=== PATIENT | female | born 1980 | race Caucasian/White ===

== ENCOUNTER 2021-08-13 18:54 | Emergency (ER) | payer OTHER ==
[~2021-08-13] VITALS: Ht 165.1 cm; Wt 65.8 kg
[2021-08-13] MEDS ORDERED: FLEXERIL PO ×2 (20:38→20:58)
[2021-08-13] MEDS ORDERED: MEDROLDOSEPACK PO ×2 (20:38→20:58)
[2021-08-13] MEDS ORDERED: APAP W/CODEINE1 TA2 PO ×2 (20:38→20:58)
[2021-08-13 20:49] VITALS: BP 130/88
== END 2021-08-13 20:50 | disposition home or self-care (01) ==
LOC: M.ERS 18:54
DX: S16.1XXA Strain of muscle, fascia and tendon at neck level, initial encounter (principal); R51.9 Headache, unspecified; V89.2XXA Person injured in unspecified motor-vehicle accident, traffic, initial encounter; Y93.89 Activity, other specified; Y92.89 Other specified places as the place of occurrence of the external cause; Y99.8 Other external cause status

== ENCOUNTER 2021-09-16 17:36 | Emergency (ER) | payer OTHER ==
[~2021-09-16] VITALS: Ht 165.1 cm; Wt 65.8 kg
[~2021-09-16 17:36] MED LIST: APAP W/CODEINE1 TA2 PO; FLEXERIL PO; MEDROLDOSEPACK PO
[2021-09-16 19:57] LABS: URINE BILIRUBIN NEGATIVE (Negative); URINE BLOOD NEGATIVE (Negative); URINE CLARITY CLEAR; URINE COLOR YELLOW; URINE GLUCOSE-RANDOM NEGATIVE (Negative); URINE KETONES NEGATIVE (Negative); URINE LEUKOCYTES-REFLEX NEGATIVE (Negative); URINE NITRITE-REFLEX POSITIVE (Negative); URINE PROTEIN NEGATIVE (Negative); URINE SPECIFIC GRAVITY >= 1.030 (1.005-1.030); URINE UROBILINOGEN 0.2 E.U./dl (0.2-1.0)
[2021-09-16 20:07] LABS: MUCUS 4-6 Moderate strn/LPF (None Seen); SQUAMOUS >10 Many /LPF (0-3)
[2021-09-16 20:08] LABS: BACTERIA-REFLEX >30 Many /HPF (None Seen); URINE WBC-REFLEX 0-5 Rare /HPF (0-5)
[2021-09-16 20:09] LABS: CASTS None Seen /LPF (None Seen); CRYSTALS None Seen /LPF (None Seen); URINE RBC None Seen /HPF (0-2)
[2021-09-16 20:12] LABS: INFLUENZA A ANTIGEN Negative (Negative); INFLUENZA B ANTIGEN Negative (Negative)
[2021-09-16] MEDS ORDERED: ZOFRAN ODT4 MG PO (21:21)
[2021-09-16 21:45] LABS: ABSOLUTE EOSINOPHILS 0.1 thou/uL (0.0-0.7); ABSOLUTE LYMPHOCYTES 1.1 thou/uL (0.8-5.3); ABSOLUTE MONOCYTES 0.7 thou/uL (0.0-1.2); ABSOLUTE NEUTROPHILS 6.7 thou/uL (1.6-8.1); BASOPHILS 0.2 %; EOSINOPHILS 0.6 %; HEMATOCRIT 38.2 % (37.0-47.0); HEMOGLOBIN 12.9 gm/dL (12.0-15.0); LYMPHOCYTES 13.5 %; MCHC 33.8 g/dL (28.0-37.0); MCV 88.6 fL (80.0-100.0); MONOCYTES 7.7 %; MPV 8.8 fl. (7.2-11.1); NUCLEATED RBCS 0 /100WBC; PLATELET COUNT* 194 thou/uL (150-400); RBC 4.31 mil/uL (4.20-5.00); RDW-CV 12.5 % (10.5-14.5); WBC 8.5 thou/uL (4.0-11.0)
[2021-09-16 21:49] LABS: CALCIUM 8.7 mg/dL (8.5-10.1); CREATININE 0.7 mg/dL (0.6-1.3); POTASSIUM 3.2 mmol/L (3.5-5.1)
[2021-09-16 21:53] LABS: ALBUMIN 3.3 g/dL (3.4-5.0); TOTAL BILIRUBIN 0.5 mg/dL (<0.1-1.0); TOTAL PROTEIN 6.7 g/dL (6.4-8.2)
[2021-09-16] MEDS ORDERED: AUGMENTIN 500-1 EACH PO (22:31)
[2021-09-16 23:02] VITALS: BP 112/78
== END 2021-09-16 23:02 | disposition home or self-care (01) ==
LOC: M.ERS 17:36
PROVIDERS: Personal Emergency Response Attendant
DX: N12 Tubulo-interstitial nephritis, not specified as acute or chronic (principal); Z20.822 Contact with and (suspected) exposure to COVID-19